=== PATIENT | female | born 1975 | race Caucasian/White ===

== ENCOUNTER 2020-12-29 09:34 | Outpatient (CLI) | payer OTHER, SELFPAY ==
--- NOTE | 2020-12-29 09:42 | XR_ITS ---
WS: [id number] Lumbar spine, 3 views, 12/29/2020 Clinical Data: BACK PAIN Comparison: None. Findings: The patient is had a posterior fusion with bilateral pedicle screws at L1 and L3 connected with metal bands. This fusion is reducing a compression fracture of the superior aspect of the L2 vertebral bod y. There is loss of less than 50% of the central vertebral body height of L2. No retropulsion is seen . Osteoarthritic changes of the L4 and L5 vertebral bodies seen. No other fractures are noted. The cordon sverse processes and SI joints are unremarkable. XR/XR lumbar spine 2-3V* [id number] Impression: Posterior fusion at L1-L3 reducing compression fracture of L2.
== END 2020-12-29 09:35 | disposition home or self-care (01) ==
LOC: RAD 09:38
PROVIDERS: PCP Internal Medicine Medical Oncology; Visit Provider Dermatology
DX: M43.26 Fusion of spine, lumbar region (principal); S32.020A Wedge compression fracture of second lumbar vertebra, initial encounter for closed fracture; X58.XXXA Exposure to other specified factors, initial encounter
CPT/HCPCS: 72100